=== PATIENT | female | born 1945 | race Caucasian/White ===

== ENCOUNTER 2021-06-22 08:21 | Inpatient (IN) | payer MEDICARE, OTHER ==
[~2021-06-22] VITALS: Ht 160 cm; Wt 57.2 kg
[2021-06-22] MEDS ORDERED: SODIUM CHLORIDE 0.9% 1000ML 1,000 ML ONE (09:04)
[2021-06-22] MEDS ORDERED: ONDANSETRON HCL INJ 2MG/ML 2ML 2 MG/ML VIAL ONE ×2 (09:04→10:07)
[2021-06-22] MEDS ORDERED: KETOROLAC TROMETHAMINE 30 MG/ML VIAL IV PRN (09:30)
[2021-06-22] MEDS ORDERED: ONDANSETRON HCL INJ 2MG/ML 2ML 2 MG/ML VIAL IV STA ×2 (09:47→10:05)
[2021-06-22] MEDS ORDERED: FAMOTIDINE 20 MG/2 ML VIAL IV STA (09:47)
[2021-06-22] MEDS ORDERED: SODIUM CHLORIDE 0.9% 1000ML 1,000 ML IV ONE (10:00)
[2021-06-22] MEDS ORDERED: KETOROLAC TROMETHAMINE 30 MG/ML VIAL ONE (10:07)
[2021-06-22] MEDS ORDERED: FAMOTIDINE 20 MG/2 ML VIAL IV ONE (10:07)
[2021-06-22] MEDS ORDERED: HYDRALAZINE HCL 20 MG/ML VIAL IV ONE (10:45)
[2021-06-22] MEDS ORDERED: HYDRALAZINE HCL 20 MG/ML VIAL ONE ×2 (10:52→11:48)
[2021-06-22] MEDS ORDERED: PROMETHAZINE HCL (IM) 25 MG/ML VIAL IM ONE ×2 (10:55→11:46)
[2021-06-22] MEDS ORDERED: SODIUM CHLORIDE 0.9% 100 ML ONE ×2 (10:55→14:17)
[2021-06-22] MEDS ORDERED: PROMETHAZINE 12.5MG/ NACL 0.9% 12.5 MG/50 ML BAG IV ONE ×2 (11:00→12:00)
[2021-06-22] MEDS ORDERED: SODIUM CHLORIDE 0.9% 50ML 50 ML ONE ×2 (11:47→12:57)
[2021-06-22] MEDS ORDERED: HYDRALAZINE HCL 20 MG/ML VIAL IV STA (11:59)
[2021-06-22] MEDS ORDERED: METOCLOPRAMIDE HCL 10 MG/2ML VIAL IV ONE (12:30)
[2021-06-22] MEDS ORDERED: MORPHINE SULFATE 1 MG/ML 30ML PCA IV PRN (12:30)
[2021-06-22] MEDS ORDERED: SODIUM CHLORIDE 0.9% 500ML 500 ML ONE (12:30)
[2021-06-22] MEDS ORDERED: SODIUM CHLORIDE 0.9% 500ML 500 ML IV ONE ×2 (12:30→23:30)
[2021-06-22] MEDS ORDERED: NALOXONE HCL INJ 0.4 MG/ML AMP IV PRN (12:30)
[2021-06-22] MEDS ORDERED: MORPHINE SULFATE INJ 4 MG/ML INJ 1ML ONE (12:31)
[2021-06-22] MEDS ORDERED: IOPAMIDOL 370 MG/ML 200 ML INFUS..BTL INJ ONE (12:58)
[2021-06-22] MEDS ORDERED: CLONIDINE HCL 0.2 MG TAB PO ONE (14:00)
[2021-06-22] MEDS ORDERED: Vancomycin IV 1 GM in SODIUM CHLORIDE 0.9% 250ML 250 ML IV ONE (14:00)
[2021-06-22] MEDS ORDERED: ACETAMINOPHEN 325 MG TAB PO ONE (14:00)
[2021-06-22] MEDS ORDERED: LEVOFLOXACIN 750MG/D5W 150ML 150 ML IV SCH (14:00)
[2021-06-22] MEDS ORDERED: ACETAMINOPHEN 325 MG TAB ONE (14:03)
[2021-06-22] MEDS: CEFEPIME 2 GM in SODIUM CHLORIDE 0.9% 100 ML IV SCH ×2 (14:05→22:30)
[2021-06-22] MEDS ORDERED: CLONIDINE HCL 0.1 MG TAB ONE (14:17)
[2021-06-22] MEDS ORDERED: SODIUM CHLORIDE 0.9% 250ML 250 ML ONE (14:17)
[2021-06-22] MEDS ORDERED: LEVOFLOXACIN 750MG/D5W 150ML 150 ML IV ONE (14:18)
[2021-06-22] MEDS ORDERED: Vancomycin IV 1 GM VIAL ONE (14:18)
[2021-06-22] MEDS ORDERED: CEFEPIME HCL 1 GM VIAL ONE (14:18)
[2021-06-22] MEDS ORDERED: ONDANSETRON HCL INJ 2MG/ML 2ML 2 MG/ML VIAL IV PRN ×2 (14:30→23:30)
[2021-06-22] MEDS ORDERED: PROMETHAZINE 12.5MG/ NACL 0.9% 12.5 MG/50 ML BAG IV PRN (14:30)
[2021-06-22] MEDS ORDERED: SODIUM CHLORIDE 0.9% 1000ML 1,000 ML IV SCH (14:30)
[2021-06-22] MEDS ORDERED: HYDRALAZINE HCL 20 MG/ML VIAL IV PRN (14:30)
[2021-06-22] MEDS ORDERED: HYDROMORPHONE 1MG/1ML INJ IV PRN (14:30)
[2021-06-22 19:45] VITALS: BP 84/52
[2021-06-22 21:26] VITALS: BP 84/52
[2021-06-22 22:05] VITALS: BP 84/52
[2021-06-22] MEDS ORDERED: METOCLOPRAMIDE HCL 10 MG/2ML VIAL IV SCH (23:30)
[2021-06-22] MEDS ORDERED: BENZONATATE 100 MG CAP PO PRN (23:30)
[2021-06-22] MEDS ORDERED: PHENAZOPYRIDINE HCL 100 MG TAB PO PRN (23:30)
[2021-06-22] MEDS ORDERED: POTASSIUM CHLORIDE 20 MEQ TAB CR PO PRN (23:30)
[2021-06-22] MEDS ORDERED: ACETAMINOPHEN 325 MG TAB PO PRN (23:30)
[2021-06-22] MEDS ORDERED: DIPHENHYDRAMINE HCL 25 MG CAP PO PRN (23:30)
[2021-06-22] MEDS ORDERED: SIMETHICONE 80 MG CHEW PO PRN (23:30)
[2021-06-22] MEDS ORDERED: LIDOCAINE 4% PATCH TP PRN (23:30)
[2021-06-22] MEDS ORDERED: ALBUTEROL/IPRATROPIUM 3 ML NEB NEB PRN (23:30)
[2021-06-22] MEDS ORDERED: DOCUSATE SODIUM 100 MG CAP PO PRN (23:30)
[2021-06-22] MEDS ORDERED: FENTANYL1 EAC2 TD (23:35)
[2021-06-22] MEDS ORDERED: VITAMIN D3 COM1 EACH PO (23:35)
[2021-06-22] MEDS ORDERED: HYDROCODON-ACE1 EAC9 PO (23:35)
[2021-06-22] MEDS ORDERED: VITAMIN C1000 MG PO (23:35)
[2021-06-22] MEDS ORDERED: ZINC PO (23:35)
[2021-06-22] MEDS ORDERED: ROSUVASTATIN CA40 MG PO (23:35)
[2021-06-22] MEDS ORDERED: LOSARTAN POTASS25 MG PO (23:36)
[2021-06-22] MEDS: CEFEPIME 1 GM in SODIUM CHLORIDE 0.9% 50ML 50 ML IV SCH (23:51)
[2021-06-23] MEDS ORDERED: SODIUM CHLORIDE 0.9% 500ML 500 ML IV ONE (00:30)
[2021-06-23] MEDS: KETOROLAC TROMETHAMINE 30 MG/ML VIAL IV SCH ×4 (00:35→17:04)
[2021-06-23] MEDS: METOCLOPRAMIDE HCL 10 MG/2ML VIAL IV SCH ×4 (00:35→17:03)
[2021-06-23 01:07] VITALS: BP 110/46
[2021-06-23] MEDS: LACTATED RINGER'S 1,000 ML INJ SCH ×2 (01:32→06:10)
[2021-06-23] MEDS: HYDROCODONE/APAP 5MG-325MG TAB PO PRN (01:35)
[2021-06-23] MEDS ORDERED: Vancomycin IV 750 MG in SODIUM CHLORIDE 0.9% 100 ML 150 ML IV SCH (03:00)
[2021-06-23] MEDS ORDERED: SODIUM CHLORIDE 0.9% IV SCH (03:30)
[2021-06-23] MEDS ORDERED: Vancomycin IV 0.75 GM in SODIUM CHLORIDE 0.9% 250ML 250 ML IV SCH (03:30)
[2021-06-23] MEDS ORDERED: VANCOMYCIN IV SCH (03:30)
[2021-06-23] MEDS ORDERED: Vancomycin IV 1 GM VIAL ONE (03:31)
[2021-06-23] MEDS ORDERED: SODIUM CHLORIDE 0.9% 250ML 250 ML ONE (03:31)
[2021-06-23 04:41] VITALS: BP 115/53
[2021-06-23] MEDS: CEFEPIME 1 GM in SODIUM CHLORIDE 0.9% 50ML 50 ML IV SCH (06:01)
[2021-06-23] MEDS ORDERED: PANTOPRAZOLE SOD 40 MG TABEC PO SCH (07:30)
[2021-06-23 09:57] LABS: BASOPHILS % 0.2 % (0.0-1.0); HEMATOCRIT 34.7 % (34.2-44.1); HEMOGLOBIN 11.2 g/dL (12.0-16.0); LYMPHOCYTES # (AUTO) 1.6 (1.0-3.2); LYMPHOCYTES % 10.3 % (18.0-39.1); MEAN CORPUSCULAR HGB CONC 32.3 g/dL (31-35); MEAN CORPUSCULAR VOLUME 89.9 fL (81-99); MONOCYTES % 6.4 % (4.4-11.3); NEUTROPHILS # (AUTO) 12.5 (2.1-6.9); NEUTROPHILS % 82.6 % (38.7-80.0); PLATELET COUNT 199 x10e3/uL (140-360); RED BLOOD COUNT 3.86 x10e6/uL (3.6-5.1); RED CELL DISTRIBUTION WIDTH 14.2 % (11.7-14.4)
[2021-06-23 10:14] LABS: ANION GAP 13.9 mmol/L (8-16); CALCIUM 7.9 mg/dL (8.4-10.2); CREATININE, SERUM 0.67 mg/dL (0.57-1.11); POTASSIUM 3.9 mmol/L (3.5-5.1)
[2021-06-23 10:37] LABS: FERRITIN 133.32 ng/mL (4.63-204.00)
[2021-06-23 10:58] VITALS: BP 162/69
[2021-06-23] MEDS ORDERED: SODIUM CHLORIDE 0.9% 1000ML 1,000 ML ONE (11:47)
[2021-06-23] MEDS: SODIUM CHLORIDE 0.9% 1000ML 1,000 ML IV SCH (13:16)
[2021-06-23] MEDS: ENOXAPARIN SOD INJ 40 MG/0.4 ML SYR SC SCH (17:00)
[2021-06-23 20:55] VITALS: BP_SYST 159; BP_SYST 179; BP_SYST 198; BP_DIAS 101; BP_DIAS 80; BP_DIAS 84
[2021-06-23 22:43] VITALS: BP 218/84
[2021-06-23] MEDS: HYDRALAZINE HCL 20 MG/ML VIAL IV PRN (22:45)
[2021-06-23] MEDS: MELATONIN 5 MG TABLET PO PRN (22:49)
[2021-06-23 23:00] VITALS: BP 199/76
[2021-06-23] MEDS ORDERED: LORAZEPAM 1 MG TAB PO ONE (23:45)
[2021-06-24] VITALS (11 sets, daily range): BP systolic 145–213; BP diastolic 61–93
[2021-06-24] MEDS: METOCLOPRAMIDE HCL 10 MG/2ML VIAL IV SCH ×4 (00:12→18:04)
[2021-06-24] MEDS: KETOROLAC TROMETHAMINE 30 MG/ML VIAL IV SCH ×2 (00:14→06:29)
[2021-06-24] MEDS: SODIUM CHLORIDE 0.9% 1000ML 1,000 ML IV SCH ×3 (01:12→21:52)
[2021-06-24 05:39] LABS: BASOPHILS % 0.3 % (0.0-1.0); EOSINOPHILS # (AUTO) 0.1 (0.0-0.4); EOSINOPHILS % 0.5 % (0.0-6.0); HEMATOCRIT 33.5 % (34.2-44.1); HEMOGLOBIN 10.9 g/dL (12.0-16.0); LYMPHOCYTES # (AUTO) 1.3 (1.0-3.2); LYMPHOCYTES % 13.3 % (18.0-39.1); MEAN CORPUSCULAR HEMOGLOBIN 28.7 pg (28-32); MEAN CORPUSCULAR HGB CONC 32.5 g/dL (31-35); MEAN CORPUSCULAR VOLUME 88.2 fL (81-99); MONOCYTES # (AUTO) 0.8 (0.2-0.8); MONOCYTES % 7.6 % (4.4-11.3); NEUTROPHILS # (AUTO) 7.9 (2.1-6.9); PLATELET COUNT 192 x10e3/uL (140-360); RED CELL DISTRIBUTION WIDTH 13.7 % (11.7-14.4)
[2021-06-24] MEDS: HYDROCODONE/APAP 5MG-325MG TAB PO PRN (08:00)
[2021-06-24] MEDS ORDERED: GADOBENATE DIMEGLUMINE 0 ML IV ONE (11:22)
[2021-06-24] MEDS ORDERED: SODIUM CHLORIDE 0.9% 50ML 0 ML ONE (11:22)
[2021-06-24] MEDS ORDERED: LORAZEPAM 1 MG TAB PO PRN (11:45)
[2021-06-24] MEDS: LOSARTAN POTASSIUM 100 MG TAB PO SCH (12:59)
[2021-06-24] MEDS: CARVEDILOL 3.125 MG TAB PO SCH ×2 (13:00→17:19)
[2021-06-24] MEDS: HYDRALAZINE HCL 20 MG/ML VIAL IV PRN (15:34)
[2021-06-24] MEDS ORDERED: NIFEDIPINE CR 30 MG TAB PO SCH (16:30)
[2021-06-24] MEDS: ENOXAPARIN SOD INJ 40 MG/0.4 ML SYR SC SCH (17:19)
[2021-06-24] MEDS: LORAZEPAM 1 MG TAB PO PRN (22:03)
[2021-06-25] MEDS: METOCLOPRAMIDE HCL 10 MG/2ML VIAL IV SCH ×3 (00:03→12:05)
[2021-06-25] MEDS: MELATONIN 5 MG TABLET PO PRN (00:13)
[2021-06-25 01:00] VITALS: BP 129/55
[2021-06-25] MEDS: HYDROCODONE/APAP 5MG-325MG TAB PO PRN (01:53)
[2021-06-25] MEDS: SODIUM CHLORIDE 0.9% 1000ML 1,000 ML IV SCH (05:12)
[2021-06-25 05:40] LABS: BASOPHILS % 0.3 % (0.0-1.0); HEMATOCRIT 39.5 % (34.2-44.1); HEMOGLOBIN 12.8 g/dL (12.0-16.0); LYMPHOCYTES # (AUTO) 0.5 (1.0-3.2); LYMPHOCYTES % 6.5 % (18.0-39.1); MEAN CORPUSCULAR HEMOGLOBIN 29.2 pg (28-32); MEAN CORPUSCULAR HGB CONC 32.4 g/dL (31-35); MEAN CORPUSCULAR VOLUME 90.2 fL (81-99); MONOCYTES # (AUTO) 0.2 (0.2-0.8); NEUTROPHILS # (AUTO) 7.2 (2.1-6.9); NEUTROPHILS % 90.9 % (38.7-80.0); PLATELET COUNT 189 x10e3/uL (140-360); RED BLOOD COUNT 4.38 x10e6/uL (3.6-5.1); RED CELL DISTRIBUTION WIDTH 13.3 % (11.7-14.4)
[2021-06-25 05:43] VITALS: BP 155/71
[2021-06-25 05:57] LABS: ANION GAP 13.2 mmol/L (8-16); CALCIUM 8.6 mg/dL (8.4-10.2); CREATININE, SERUM 0.53 mg/dL (0.57-1.11); POTASSIUM 3.2 mmol/L (3.5-5.1)
[2021-06-25 08:00] VITALS: BP 152/61
[2021-06-25] MEDS: CARVEDILOL 3.125 MG TAB PO SCH (09:05)
[2021-06-25] MEDS: LOSARTAN POTASSIUM 100 MG TAB PO SCH (09:06)
[2021-06-25 10:02] VITALS: BP 152/61
[2021-06-25] MEDS: LORAZEPAM 1 MG TAB PO PRN (10:19)
[2021-06-25 12:00] VITALS: BP 145/82
[2021-06-25 13:32] LABS: LYMPHOCYTES % (MANUAL) 5 % (19-48); PLATELET ESTIMATE ADEQUATE; PLATELET MORPHOLOGY COMMENT NORMAL; RBC MORPHOLOGY COMMENT NORMAL
[2021-06-25 13:33] LABS: BAND NEUTROPHILS % (MANUAL) 1 %; NEUTROPHILS % (MANUAL) 94 % (40-74)
[2021-06-25] MEDS ORDERED: ONDANSETRON HCL 4 MG ORAL DISINTEGRATING TAB PO PRN (15:00)
[2021-06-25] MEDS ORDERED: PANTOPRAZOLE SOD 40 MG TABEC PO SCH (21:00)
== END 2021-06-25 15:32 | disposition home or self-care (01) | DRG 392 ==
LOC: FSED 09:10 → ERHOLD 14:33 → IMCU 18:33 → MED/SURG3 06-23 21:36
PROVIDERS: ADMIT Internal Medicine; ATTEND Internal Medicine
DX: A08.4 Viral intestinal infection, unspecified (principal); N17.9 Acute kidney failure, unspecified; I16.9 Hypertensive crisis, unspecified; N28.89 Other specified disorders of kidney and ureter; E86.0 Dehydration; G89.4 Chronic pain syndrome; M79.7 Fibromyalgia; M06.9 Rheumatoid arthritis, unspecified; K86.89 Other specified diseases of pancreas; E27.9 Disorder of adrenal gland, unspecified; Z85.038 Personal history of other malignant neoplasm of large intestine; D64.9 Anemia, unspecified; Z86.16 Personal history of COVID-19
CPT/HCPCS: 36415; 70450; 71046; 74177; 76770; 80048; 80076; 81003; 82728; 83036; 83605; 83690; 84484; 85025; 86301; 87040; 93005; 96374; 99251; 99284; J0360; J0692; J1170; J1650; J1885; J2270; J2405; J2550; J2765; J3370; J7030; J7040; J7050; J7121; Q9967; U0002

== ENCOUNTER → 2022-06-03 | Outpatient (CLI) | payer MEDICARE, OTHER ==
[~2022-06-03] MED LIST: FENTANYL1 EAC2 TD; HYDROCODON-ACE1 EAC9 PO; IOPAMIDOL 370 MG/ML 100 ML INFUS..BTL INJ ONE; LOSARTAN POTASS25 MG PO; ROSUVASTATIN CA40 MG PO; VITAMIN C1000 MG PO; VITAMIN D3 COM1 EACH PO; ZINC PO
[2022-06-03 15:58] LABS: CREATININE, SERUM 0.67 mg/dL (0.57-1.11)
== END ==
LOC: CT 14:25
PROVIDERS: ATTEND Student in an Organized Health Care Education/Training Program
DX: C25.0 Malignant neoplasm of head of pancreas (principal)
CPT/HCPCS: 36415; 82565; 84520; Q9967

== ENCOUNTER → 2022-06-04 | Outpatient (CLI) | payer MEDICARE, OTHER ==
[~2022-06-04] MED LIST changes: -IOPAMIDOL 370 MG/ML 100 ML INFUS..BTL INJ ONE
== END ==
LOC: CT 14:28
PROVIDERS: ATTEND Student in an Organized Health Care Education/Training Program
DX: C25.0 Malignant neoplasm of head of pancreas (principal)
CPT/HCPCS: 71045; 74170